=== PATIENT | female | born 1935 | race Caucasian/White ===

== ENCOUNTER 2019-02-05 15:22 | Inpatient (IN) | payer OTHER, BC ==
[2019-02-05] MEDS ORDERED: METOPROLOL TAR 50 MG TAB ONE (16:18)
[2019-02-05 16:19] LABS: Absolute Lymphocytes (CBC) 1.6 K/uL (0.7-4.9); Absolute Monocytes 1.2 K/uL (0.1-1.3); Absolute Neutrophil 6.3 K/uL (1.8-8.0); Basophils % 0.8 % (0-1.3); Eosinophils % 0.6 % (0-4.4); Hematocrit 37.4 % (36.0-45.0); Lymphocytes % 17.4 % (15.3-44.8); MPV 9.4 fL (7.6-11.3); RBC Red Blood Cell Count 3.73 M/uL (3.86-4.86)
[2019-02-05] MEDS ORDERED: NA CHLORIDE 0.9% 1,000 ML ONE (16:19)
[2019-02-05] MEDS ORDERED: METOPROLOL TARTRATE 5 MG/5 ML INJ IV ONE ×2 (16:19→20:20)
[2019-02-05 16:23] LABS: Protime INR 1.01
--- NOTE | 2019-02-05 16:36 | EDPHYS ---
Physician Documentation [facility] Name: Concetta Ugarte Age: 83 yrs Sex: Female : 1935 Arrival Date: 02/05/2019 Time: 15:26 Bed 3 Private MD: John Child R ED Physician Tuan Spencer HPI: 02/05 16:27 This 83 yrs old Female presents to ER via Ambulatory with complaints of Feet janeth Swelling, Irregular heart rate. 16:27 The patient has shortness of breath at rest, with light activity. Onset: The janeth symptoms/episode began/occurred 2 day(s) ago. Duration: The symptoms are continuous, and are steadily getting worse. The patient's shortness of breath has no apparent modifying factors. The patient or guardian reports chest pain that is located primarily in the substernal area. Onset: 2 day(s) ago. Context: The symptoms occur at rest. Modifying factors: The symptoms are aggravated by nothing. The symptoms are alleviated by nothing. Historical: - Allergies: 15:38 Codeine; hj - Home Meds: 15:38 Lasix Oral [Active]; valsartan oral oral [Active]; Albuterol Inhl [Active]; Clonidine hj Oral [Active]; escitalopram oxalate oral oral [Active]; carvedilol oral oral [Active]; Famotidine Oral [Active]; Spironolactone Oral [Active]; Hydralazine Oral [Active]; pravastatin oral oral [Active]; amlodipine oral [Active]; - PMHx: 15:38 carpal tunnel; HTN; TIA; hj - PSHx: 15:38 None; hj - Immunization history:: Adult Immunizations up to date. - Social history:: Smoking status: Patient/guardian denies using tobacco, Patient/guardian denies using alcohol. - Ebola Screening: : Patient negative for fever greater than or equal to 101.5 degrees Fahrenheit, and additional compatible Ebola Virus Disease symptoms Patient denies exposure to infectious person Patient denies travel to an Ebola-affected area in the 21 days before illness onset. - Family history:: not pertinent. ROS: 16:27 Constitutional: Negative for fever, chills, and weight loss, Eyes: Negative for injury, janeth pain, redness, and discharge, ENT: Negative for injury, pain, and discharge, Neck: Negative for injury, pain, and swelling, Respiratory: Negative for shortness of breath, cough, wheezing, and pleuritic chest pain, Abdomen/GI: Negative for abdominal pain, nausea, vomiting, diarrhea, and constipation, Back: Negative for injury and pain, : Negative for injury, bleeding, discharge, and swelling, Skin: Negative for injury, rash, and discoloration, Neuro: Negative for headache, weakness, numbness, tingling, and seizure, Psych: Negative for depression, anxiety, suicide ideation, homicidal ideation, and hallucinations, Allergy/Immunology: Negative for hives, rash, and allergies, Endocrine: Negative for neck swelling, polydipsia, polyuria, polyphagia, and marked weight changes, Hematologic/Lymphatic: Negative for swollen nodes, abnormal bleeding, and unusual bruising. 16:27 Cardiovascular: Positive for palpitations. 16:27 MS/extremity: Positive for decreased range of motion, pain, swelling, tenderness, of the left foot. Exam: 16:27 Constitutional: This is a well developed, well nourished patient who is awake, alert, janeth and in no acute distress. Head/Face: Normocephalic, atraumatic. Eyes: Pupils equal round and reactive to light, extra-ocular motions intact. Lids and lashes normal. Conjunctiva and sclera are non-icteric and not injected. Cornea within normal limits. Periorbital areas with no swelling, redness, or edema. ENT: Nares patent. No nasal discharge, no septal abnormalities noted. Tympanic membranes are normal and external auditory canals are clear. Oropharynx with no redness, swelling, or masses, exudates, or evidence of obstruction, uvula midline. Mucous membranes moist. Neck: Trachea midline, no thyromegaly or masses palpated, and no cervical lymphadenopathy. Supple, full range of motion without nuchal rigidity, or vertebral point tenderness. No Meningismus. Chest/axilla: Normal chest wall appearance and motion. Nontender with no deformity. No lesions are appreciated. Respiratory: Lungs have equal breath sounds bilaterally, clear to auscultation and percussion. No rales, rhonchi or wheezes noted. No increased work of breathing, no retractions or nasal flaring. Abdomen/GI: Soft, non-tender, with normal bowel sounds. No distension or tympany. No guarding or rebound. No evidence of tenderness throughout. Back: No spinal tenderness. No costovertebral tenderness. Full range of motion. Female : Normal external genitalia. Skin: Warm, dry with normal turgor. Normal color with no rashes, no lesions, and no evidence of cellulitis. Neuro: Awake and alert, GCS 15, oriented to person, place, time, and situation. Cranial nerves II-XII grossly intact. Motor strength 5/5 in all extremities. Sensory grossly intact. Cerebellar exam normal. Normal gait. Psych: Awake, alert, with orientation to person, place and time. Behavior, mood, and affect are within normal limits. 16:27 Cardiovascular: Rate: tachycardic, Rhythm: regular, Pulses: Pulses are 4+ in bilateral radial, brachial, femoral, popliteal, posterior tibial and and dorsalis pedis arteries.. Heart sounds: normal, Edema: is not appreciated, JVD: is not appreciated. Vital Signs: 15:39 BP 131 / 80; Pulse 145; Resp 18; Temp 98.9(O); Pulse Ox 98% on R/A; Weight 63.5 kg; hj Height 5 ft. 4 in. (162.56 cm); Pain 6/10; 16:32 BP 128 / 78; Pulse 143 MON; Resp 22; Pulse Ox 99% ; sv 16:45 BP 137 / 96; Pulse 111 MON; Resp 17; Pulse Ox 97% on R/A; Pain 6/10; sg 17:00 BP 132 / 85; Pulse 124 MON; Resp 16; Pulse Ox 98% on R/A; Pain 4/10; sg 17:30 BP 139 / 82; Pulse 102 MON; Resp 16; Pulse Ox 97% on R/A; sg 18:00 BP 137 / 89; Pulse 116 MON; Resp 16; Pulse Ox 98% on R/A; sg 18:30 BP 136 / 80; Pulse 106; Resp 16; Pulse Ox 96% on R/A; sg 19:00 BP 146 / 101; Pulse 115; Resp 19; Pulse Ox 99% on 2 lpm NC; rr5 19:30 BP 165 / 89; Pulse 120; Resp 18; Temp 98.5; Pulse Ox 100% on 2 lpm NC; rr5 20:00 BP 139 / 81; Pulse 99; Resp 16; Pulse Ox 98% 2 lpm ; rr5 20:30 BP 149 / 77; Pulse 121; Resp 16; Pulse Ox 99% on 2 lpm NC; rr5 21:00 BP 126 / 86; Pulse 118; Resp 16; Pulse Ox 99% on 2 lpm NC; rr5 22:00 BP 150 / 87; Pulse 110; Resp 17; Pulse Ox 98% on 2 lpm NC; rr5 23:00 BP 154 / 81; Pulse 103; Resp 19; Pulse Ox 99% on 2 lpm NC; rr5 02/06 00:00 BP 139 / 97; Pulse 117; Resp 19; Pulse Ox 100% ; rr5 01:00 BP 151 / 108; Pulse 102; Resp 17; Pulse Ox 98% ; rr5 02:00 BP 113 / 89; Pulse 91; Resp 17; Pulse Ox 99% on 2 lpm NC; rr5 02:49 BP 135 / 115; Pulse 122; Resp 22; Pulse Ox 96% on 2 lpm NC; ak1 02/05 15:39 Body Mass Index 24.03 (63.50 kg, 162.56 cm) hj 16:32 A fib sv 16:45 A fib sg MDM: 02/05 15:49 Patient medically screened. [facility] 16:29 Data reviewed: vital signs, nurses notes, lab test result(s), EKG, radiologic studies, janeth plain films. 02/05 16:03 Order name: Basic Metabolic Panel; Complete Time: 17:18 [facility] 02/05 16:03 Order name: CBC with Diff; Complete Time: 17:18 [facility] 02/05 16:03 Order name: LFT's; Complete Time: 17:18 [facility] 02/05 16:03 Order name: Magnesium; Complete Time: 17:18 [facility] 02/05 16:03 Order name: NT PRO-BNP; Complete Time: 17:18 [facility] 02/05 16:03 Order name: PT-INR; Complete Time: 17:18 [facility] 02/05 16:03 Order name: Troponin (emerg Dept Use Only); Complete Time: 17:18 [facility] 02/05 16:03 Order name: TSH; Complete Time: 17:18 [facility] 02/05 16:03 Order name: Urine Culture [facility] 02/05 16:24 Order name: Uric Acid; Complete Time: 17:18 [facility] 02/05 16:24 Order name: Blood Culture Adult (2) [facility] 02/05 19:35 Order name: Urine Dipstick--Ancillary (enter results) 2 02/05 20:22 Order name: Urine Dipstick-Ancillary [facility] 02/06 02:34 Order name: Sedimentation Rate, [place] [facility] 02/05 16:24 Order name: US Extremity Venous W Compression Hipolito [facility] 02/05 16:24 Order name: Foot Left 3 View XRAY; Complete Time: 17:46 [facility] 02/05 17:10 Order name: Chest Single View; Complete Time: 17:46 [facility] 02/05 18:13 Order name: US; Complete Time: 19:15 [facility] 02/06 02:40 Order name: Creatine Phosphokinase [facility] 02/06 02:40 Order name: CKMB Creatine Kinase MB [facility] 02/06 02:40 Order name: Troponin I [facility] 02/06 02:40 Order name: C-Reactive Protein [facility] 02/06 02:40 Order name: T4 Free [facility] 02/06 02:40 Order name: Thyroid Stimulating Hormone [facility] 02/05 15:56 Order name: EKG; Complete Time: 15:56 02/05 16:03 Order name: Cardiac monitoring; Complete Time: 16:20 [facility] 02/05 16:03 Order name: EKG - Nurse/Tech; Complete Time: 16:05 [facility] 02/05 16:03 Order name: IV Saline Lock; Complete Time: 16:20 [facility] 02/05 16:03 Order name: Labs collected and sent; Complete Time: 16:20 [facility] 02/05 16:03 Order name: O2 Per Protocol; Complete Time: 16:20 [facility] 02/05 16:03 Order name: O2 Sat Monitoring; Complete Time: 16:20 [facility] 02/05 16:03 Order name: Urine Dipstick-Ancillary (obtain specimen); Complete Time: 01:22 [facility] Administered Medications: Discontinued: NS 0.9% 1000 ml IV at 125 ml/hr continuous 16:24 Drug: Lopressor 5 mg Route: IVP; Site: left antecubital; sg 16:30 Drug: NS 0.9% 1000 ml Route: IV; Rate: 125 ml/hr; Site: left antecubital; sg 16:37 Drug: Lopressor 5 mg Route: IVP; Site: left antecubital; sv 17:10 Drug: Lopressor 5 mg Route: IVP; Site: left antecubital; sg 18:00 Follow up: Response: No adverse reaction sg 17:30 Drug: Lopressor (metoprolol TARTRATE) 50 mg Route: PO; sg 19:00 Follow up: Response: No adverse reaction sg 18:00 Drug: Colcrys 1.2 mg Route: PO; sg 19:00 Follow up: Response: No adverse reaction sg 18:15 Drug: Magnesium Sulfate 2 grams Route: IVPB; Infused Over: 2 hrs; Site: left sg antecubital; 19:00 Follow up: Response: No adverse reaction; IV Status: Completed infusion sg 18:15 Drug: NS 0.9% with KCl 20 mEq/L 1000 ml Route: IV; Rate: 100 ml/hr; Site: left sg antecubital; 18:15 Drug: Digoxin 0.5 mg Route: IVP; Site: left antecubital; sg 19:00 Follow up: Response: No adverse reaction sg 18:15 Drug: Pepcid 20 mg Route: IVP; Site: left antecubital; sg 19:00 Follow up: Response: No adverse reaction sg 18:15 Drug: Sotalol 80 mg Route: PO; sg 18:45 Follow up: Response: No adverse reaction; Blood pressure is elevated sg 18:20 Drug: Potassium Effervescent Tablet 50 mEq Route: PO; sg 19:00 Follow up: Response: No adverse reaction sg 19:00 Drug: Colcrys 0.6 mg Route: PO; sg 02/06 01:21 Follow up: Response: No adverse reaction rr5 02/05 19:40 Drug: Sotalol 80 mg Route: PO; rr5 19:50 Drug: Lopressor 5 mg Route: IVP; Site: left antecubital; rr5 21:05 Drug: Rocephin - (cefTRIAXone) 1 grams Route: IVPB; Infused Over: 30 mins; Site: right rr5 antecubital; 21:50 Follow up: Response: No adverse reaction; IV Status: Completed infusion rr5 Disposition: 02/05/19 16:36 Hospitalization ordered by Fady Antunez for Inpatient Admission. Preliminary diagnosis are Atrial fibrillation and flutter - with RVR, NEW ONSET, Gout, Hypomagnesemia, Hypokalemia, Pleural effusion in conditions classified elsewhere, Cardiomegaly. - Bed requested for Telemetry/MedSurg (Inpatient). - Status is Inpatient Admission. ak1 - Condition is Fair. - Problem is new. - Symptoms have improved. UTI on Admission? No Signatures: Dispatcher [employer] EDNY Kesha Flowers, RN Tio Tobar RN Tuan Cortes MD MD cha Ballard, Brenda, RN RN bb Meena Rudd RN RN ak1 Torito Gaffney RN Mya Carter RN Ramsey Ovalle RN RN rr5 Corrections: (The following items were deleted from the chart) 17:11 16:04 Chest Single View+RAD.RAD.BRZ ordered. [facility] EDNY 17:22 16:36 Hospitalization Ordered by Fady Antunez DO for Inpatient Admission. Preliminary janeth diagnosis is Atrial fibrillation and flutter - with RVR, NEW ONSET; Gout. Bed requested for Telemetry/MedSurg (Inpatient). Status is Inpatient Admission. Condition is Fair. Problem is new. Symptoms have improved. UTI on Admission? No. janeth 19:20 17:22 02/05/2019 16:36 Hospitalization Ordered by Fady Antunez DO for Inpatient janeth Admission. Preliminary diagnosis is Atrial fibrillation and flutter - with RVR, NEW ONSET; Gout; Hypomagnesemia; Hypokalemia. Bed requested for Telemetry/MedSurg (Inpatient). Status is Inpatient Admission. Condition is Fair. Problem is new. Symptoms have improved. UTI on Admission? No. janeth 02/06 00:54 02/05 19:20 02/05/2019 16:36 Hospitalization Ordered by Fady Antunez DO for Inpatient bb Admission. Preliminary diagnosis is Atrial fibrillation and flutter - with RVR, NEW ONSET; Gout; Hypomagnesemia; Hypokalemia; Pleural effusion in conditions classified elsewhere; Cardiomegaly. Bed requested for Telemetry/MedSurg (Inpatient). Status is Inpatient Admission. Condition is Fair. Problem is new. Symptoms have improved. UTI on Admission? No. janeth 02/06 02:05 00:54 02/05/2019 16:36 Hospitalization Ordered by Fady Antunez DO for Inpatient cg Admission. Preliminary diagnosis is Atrial fibrillation and flutter - with RVR, NEW ONSET; Gout; Hypomagnesemia; Hypokalemia; Pleural effusion in conditions classified elsewhere; Cardiomegaly. Bed requested for Intensive Care Unit. Status is Inpatient Admission. Condition is Fair. Problem is new. Symptoms have improved. UTI on Admission? No. bb 03:29 02:05 02/05/2019 16:36 Hospitalization Ordered by Fady Antunez DO for Inpatient ak1 Admission. Preliminary diagnosis is Atrial fibrillation and flutter - with RVR, NEW ONSET; Gout; Hypomagnesemia; Hypokalemia; Pleural effusion in conditions classified elsewhere; Cardiomegaly. Bed requested for Telemetry/MedSurg (Inpatient). Status is Inpatient Admission. Condition is Fair. Problem is new. Symptoms have improved. UTI on Admission? No. cg
--- NOTE | 2019-02-05 16:36 | ER ---
Nurse's Notes [facility] Name: Concetta Ugarte Age: 83 yrs Sex: Female : 1935 Arrival Date: 02/05/2019 Time: 15:26 Bed 3 Private MD: John Child R Diagnosis: Atrial fibrillation and flutter-with RVR, NEW ONSET;Gout;Hypomagnesemia;Hypokalemia;Pleural effusion in conditions classified elsewhere;Cardiomegaly Presentation: 02/05 15:34 Presenting complaint: Patient states: i went tot urgent care today due to my L foot hj hurting, swollen and red, told i had cellulitis; denies fever and chills; was told i have irregular heart rate; denies chest pain or SOB;. Transition of care: patient was not received from another setting of care. Onset of symptoms was February 05, 2019. Risk Assessment: Do you want to hurt yourself or someone else? Patient reports no desire to harm self or others. Initial Sepsis Screen: Does the patient meet any 2 criteria? No. Patient's initial sepsis screen is negative. Does the patient have a suspected source of infection? No. Patient's initial sepsis screen is negative. Care prior to arrival: None. 15:34 Method Of Arrival: Ambulatory 15:34 Acuity: REYNA 2 hj 15:56 Acuity: REYNA 2 ss Triage Assessment: 15:38 General: Appears in no apparent distress. uncomfortable, Behavior is calm, cooperative, hj appropriate for age. Pain: Complains of pain in left foot Pain currently is 6 out of 10 on a pain scale. Historical: - Allergies: 15:38 Codeine; hj - Home Meds: 15:38 Lasix Oral [Active]; valsartan oral oral [Active]; Albuterol Inhl [Active]; Clonidine hj Oral [Active]; escitalopram oxalate oral oral [Active]; carvedilol oral oral [Active]; Famotidine Oral [Active]; Spironolactone Oral [Active]; Hydralazine Oral [Active]; pravastatin oral oral [Active]; amlodipine oral [Active]; - PMHx: 15:38 carpal tunnel; HTN; TIA; hj - PSHx: 15:38 None; hj - Immunization history:: Adult Immunizations up to date. - Social history:: Smoking status: Patient/guardian denies using tobacco, Patient/guardian denies using alcohol. - Ebola Screening: : Patient negative for fever greater than or equal to 101.5 degrees Fahrenheit, and additional compatible Ebola Virus Disease symptoms Patient denies exposure to infectious person Patient denies travel to an Ebola-affected area in the 21 days before illness onset. - Family history:: not pertinent. Screenin:38 Abuse screen: Denies threats or abuse. Denies injuries from another. Nutritional hj screening: No deficits noted. Tuberculosis screening: No symptoms or risk factors identified. Fall Risk None identified. Assessment: 15:45 General: Appears in no apparent distress. uncomfortable, well groomed, well developed, sg well nourished, Behavior is calm, cooperative, appropriate for age. Pain: Complains of pain in left first toe Quality of pain is described as aching, throbbing. Neuro: Level of Consciousness is awake, alert, obeys commands, Oriented to person, place, time, situation, Management Manager are equal bilaterally Moves all extremities. Full function Gait is steady, Speech is normal, Facial symmetry appears normal, Pupils are PERRLA. Cardiovascular: Capillary refill is brisk in bilateral fingers Patient's skin is warm and dry. Chest pain is denied. Respiratory: Airway is patent Respiratory effort is even, unlabored, Respiratory pattern is regular, symmetrical. GI: Abdomen is round non-distended, Reports normal bowel habits, tolerance of fluids, tolerance of food. : No signs and/or symptoms were reported regarding the genitourinary system. EENT: No signs and/or symptoms were reported regarding the EENT system. Derm: Skin is intact, is thin, Skin is dry, Skin is pale, Skin temperature is warm. Musculoskeletal: Circulation, motion, and sensation intact. Range of motion: intact in all extremities, Swelling absent. 16:50 Reassessment: Patient appears in no apparent distress at this time. Patient and/or sg family updated on plan of care and expected duration. Pain level reassessed. Patient is alert, oriented x 3, equal unlabored respirations, skin warm/dry/pink. Patient states feeling better. 17:50 Reassessment: Patient appears in no apparent distress at this time. Patient and/or sg family updated on plan of care and expected duration. Pain level reassessed. Patient is alert, oriented x 3, equal unlabored respirations, skin warm/dry/pink. awaiting admission orders at this time. 18:50 Reassessment: Patient appears in no apparent distress at this time. Patient and/or sg family updated on plan of care and expected duration. Pain level reassessed. 19:00 General: Appears in no apparent distress. comfortable, Behavior is calm, cooperative, rr5 appropriate for age. Neuro: Level of Consciousness is awake, alert, obeys commands, Oriented to person, place, time, situation, Appropriate for age. Cardiovascular: Capillary refill < 3 seconds Patient's skin is warm and dry. Rhythm is atrial fibrillation. 19:00 Respiratory: Airway is patent Respiratory effort is even, unlabored, Respiratory rr5 pattern is regular, symmetrical. GI: No signs and/or symptoms were reported involving the gastrointestinal system. : No signs and/or symptoms were reported regarding the genitourinary system. EENT: No signs and/or symptoms were reported regarding the EENT system. Derm: Skin is intact, Skin is dry, Skin temperature is warm. Musculoskeletal: Capillary refill < 3 seconds, Swelling present in left foot. 20:15 Reassessment: Patient appears in no apparent distress at this time. Patient is alert, rr5 oriented x 3, equal unlabored respirations, skin warm/dry/pink. no complaints made. Provider at bedside examining the patient. 21:15 Reassessment: Patient appears in no apparent distress at this time. Patient is alert, rr5 oriented x 3, equal unlabored respirations, skin warm/dry/pink. chatting with her property worker comfortably. Patient states symptoms have improved. 22:15 Reassessment: Patient appears in no apparent distress at this time. Patient is alert, rr5 oriented x 3, equal unlabored respirations, skin warm/dry/pink. awaiting for room assignment. 23:00 Reassessment: khushbu ugarte (daughter in law) [phone] contact number. rr5 23:20 Reassessment: Patient appears in no apparent distress at this time. Patient is alert, rr5 oriented x 3, equal unlabored respirations, skin warm/dry/pink. asleep on bed on side lying position. 02/06 00:10 Reassessment: Patient appears in no apparent distress at this time. pt informed of ER ak1 hold status due to no ICU bed available. pt lights dimmed and door closed at pt request. 01:05 Reassessment: Patient appears in no apparent distress at this time. Patient is alert, rr5 oriented x 3, equal unlabored respirations, skin warm/dry/pink. charge nurse coordinated to supervisor roving for the bed arrangement. supervisor roving talked to hospitalist with order patient can go to [facility]. Vital Signs: 02/05 15:39 BP 131 / 80; Pulse 145; Resp 18; Temp 98.9(O); Pulse Ox 98% on R/A; Weight 63.5 kg; hj Height 5 ft. 4 in. (162.56 cm); Pain 6/10; 16:32 BP 128 / 78; Pulse 143 MON; Resp 22; Pulse Ox 99% ; sv 16:45 BP 137 / 96; Pulse 111 MON; Resp 17; Pulse Ox 97% on R/A; Pain 6/10; sg 17:00 BP 132 / 85; Pulse 124 MON; Resp 16; Pulse Ox 98% on R/A; Pain 4/10; sg 17:30 BP 139 / 82; Pulse 102 MON; Resp 16; Pulse Ox 97% on R/A; sg 18:00 BP 137 / 89; Pulse 116 MON; Resp 16; Pulse Ox 98% on R/A; sg 18:30 BP 136 / 80; Pulse 106; Resp 16; Pulse Ox 96% on R/A; sg 19:00 BP 146 / 101; Pulse 115; Resp 19; Pulse Ox 99% on 2 lpm NC; rr5 19:30 BP 165 / 89; Pulse 120; Resp 18; Temp 98.5; Pulse Ox 100% on 2 lpm NC; rr5 20:00 BP 139 / 81; Pulse 99; Resp 16; Pulse Ox 98% 2 lpm ; rr5 20:30 BP 149 / 77; Pulse 121; Resp 16; Pulse Ox 99% on 2 lpm NC; rr5 21:00 BP 126 / 86; Pulse 118; Resp 16; Pulse Ox 99% on 2 lpm NC; rr5 22:00 BP 150 / 87; Pulse 110; Resp 17; Pulse Ox 98% on 2 lpm NC; rr5 23:00 BP 154 / 81; Pulse 103; Resp 19; Pulse Ox 99% on 2 lpm NC; rr5 02/06 00:00 BP 139 / 97; Pulse 117; Resp 19; Pulse Ox 100% ; rr5 01:00 BP 151 / 108; Pulse 102; Resp 17; Pulse Ox 98% ; rr5 02:00 BP 113 / 89; Pulse 91; Resp 17; Pulse Ox 99% on 2 lpm NC; rr5 02:49 BP 135 / 115; Pulse 122; Resp 22; Pulse Ox 96% on 2 lpm NC; ak1 02/05 15:39 Body Mass Index 24.03 (63.50 kg, 162.56 cm) hj 16:32 A fib sv 16:45 A fib sg ED Course: 02/05 15:26 Patient arrived in ED. mr 15:26 John Child MD is Private Physician. mr 15:36 Triage completed. hj 15:39 Arm band placed on right wrist. hj 15:39 Patient has correct armband on for positive identification. Placed in gown. Bed in low hj position. Call light in reach. Side rails up X 1. Adult w/ patient. 15:49 Tuan Spencer MD is Attending Physician. janeth 16:04 Tio Jung, BRIEN is Primary Nurse. sg 16:12 Inserted saline lock: 22 gauge in left antecubital area, using aseptic technique. Blood ss collected. 16:35 Fady Antunez DO is Hospitalizing Provider. janeth 16:57 Foot Left 3 View XRAY In Process Unspecified. EDMS 17:16 Chest Single View In Process Unspecified. EDMS 20:41 Urine Dipstick--Ancillary (enter results) Sent. rr5 20:45 Inserted saline lock: 22 gauge in right antecubital area, using aseptic technique. rr5 Blood collected. 02/06 00:00 IV discontinued, right AC line removed. positive infiltration. rr5 02:52 No provider procedures requiring assistance completed. Patient admitted, IV remains in rr5 place. intact, No redness/swelling at site. Administered Medications: Discontinued: NS 0.9% 1000 ml IV at 125 ml/hr continuous 02/05 16:24 Drug: Lopressor 5 mg Route: IVP; Site: left antecubital; sg 16:30 Drug: NS 0.9% 1000 ml Route: IV; Rate: 125 ml/hr; Site: left antecubital; sg 16:37 Drug: Lopressor 5 mg Route: IVP; Site: left antecubital; sv 17:10 Drug: Lopressor 5 mg Route: IVP; Site: left antecubital; sg 18:00 Follow up: Response: No adverse reaction sg 17:30 Drug: Lopressor (metoprolol TARTRATE) 50 mg Route: PO; sg 19:00 Follow up: Response: No adverse reaction sg 18:00 Drug: Colcrys 1.2 mg Route: PO; sg 19:00 Follow up: Response: No adverse reaction sg 18:15 Drug: Magnesium Sulfate 2 grams Route: IVPB; Infused Over: 2 hrs; Site: left sg antecubital; 19:00 Follow up: Response: No adverse reaction; IV Status: Completed infusion sg 18:15 Drug: NS 0.9% with KCl 20 mEq/L 1000 ml Route: IV; Rate: 100 ml/hr; Site: left sg antecubital; 18:15 Drug: Digoxin 0.5 mg Route: IVP; Site: left antecubital; sg 19:00 Follow up: Response: No adverse reaction sg 18:15 Drug: Pepcid 20 mg Route: IVP; Site: left antecubital; sg 19:00 Follow up: Response: No adverse reaction sg 18:15 Drug: Sotalol 80 mg Route: PO; sg 18:45 Follow up: Response: No adverse reaction; Blood pressure is elevated sg 18:20 Drug: Potassium Effervescent Tablet 50 mEq Route: PO; sg 19:00 Follow up: Response: No adverse reaction sg 19:00 Drug: Colcrys 0.6 mg Route: PO; sg 02/06 01:21 Follow up: Response: No adverse reaction rr5 02/05 19:40 Drug: Sotalol 80 mg Route: PO; rr5 19:50 Drug: Lopressor 5 mg Route: IVP; Site: left antecubital; rr5 21:05 Drug: Rocephin - (cefTRIAXone) 1 grams Route: IVPB; Infused Over: 30 mins; Site: right rr5 antecubital; 21:50 Follow up: Response: No adverse reaction; IV Status: Completed infusion rr5 Outcome: 16:36 Decision to Hospitalize by Provider. [facility] 02/06 02:52 Admitted to Tele accompanied by nurse, via stretcher, room 409, with chart, Report rr5 called to tara Condition: stable Instructed on the need for admit. 03:29 Patient left the ED. ak1 Signatures: Dispatcher [employer] EDMS Kesha Flowers, RN Tio Tobar RN RN Tuan Marks MD MD cha Rivera, Mary mr JustinaNisa, RN RN ss Meena Rudd RN RN ak1 Torito Gaffney RN BRIEN Ramsey Luna RN RN rr5 Corrections: (The following items were deleted from the chart) 02/05 15:42 15:39 Pulse 143bpm; Resp 18bpm; Pulse Ox 98% RA; Temp 98.9F Oral; 63.5 kg; Height 5 ft. hj 4 in.; BMI: 24.0; Pain 6/10; hj 15:43 15:34 Presenting complaint: Patient states: i went tot urgent care today due to my L hj foot hurting, swollen and red, told i had cellulitis; denies fever and chills; was told i have irregular heart rate; hj 16:30 15:34 Acuity: REYNA 3 hj hj 17:11 16:57 In radiology for Chest Single View+[id number].[email or web address].[email or web address]. EDMS EDMS 18:35 18:15 Colcrys 0.6 mg PO sg sg 23:21 23:00 Reassessment: daughter in law [phone] contact number. rr5 rr5
[2019-02-05 16:48] LABS: Albumin 3.5 g/dL (3.4-5.0); Bilirubin Direct 0.2 mg/dL (0-0.2); Bilirubin Total 0.4 mg/dL (0.2-1.0); Potassium 3.3 mmol/L (3.5-5.1); Protein, Total 7.7 g/dL (6.4-8.2); Thyroid Stimulating Hormone 1.48 uIU/mL (0.360-3.740)
[2019-02-05 16:51] LABS: Magnesium 1.3 mg/dL (1.8-2.4); Troponin (Emerg Dept Use Only) 1.1 ng/mL (0.0-0.045)
[2019-02-05] MEDS ORDERED: COLCHICINE 0.6 MG TAB ONE (17:05)
--- NOTE | 2019-02-05 17:24 | RAD REPORT ---
EXAM DESCRIPTION: RAD - Chest Single View - 02/05/2019 5:15 pm CLINICAL HISTORY: COUGH COPD Chest pain. COMPARISON: No comparisons FINDINGS: Portable technique limits examination quality. Emphysematous changes are present with a small left pleural effusion and vague opacity in left lung b ase, most compatible with pneumonia. The heart is moderately enlarged in size with aortic atheroscler osis. No displaced fractures.
--- NOTE | 2019-02-05 17:25 | RAD REPORT ---
EXAM DESCRIPTION: RAD - Foot Left 3 View - 02/05/2019 5:05 pm CLINICAL HISTORY: PAIN COMPARISON: No comparisons FINDINGS: Moderate hallux valgus with metatarsus primus adductus seen. Diffuse prominent soft tissue swelling is seen involving the dorsal foot. A large plantar calcaneal spur noted. No acute fracture seen.
--- NOTE | 2019-02-05 17:26 | P.HP ---
Certification for Inpatient Patient admitted to: Inpatient With expected LOS: >2 Midnights Patient will require the following post-hospital care: None Practitioner: I am a practitioner with admitting privileges, knowledge of patient current condition, hospital course, and medical plan of care. Services: Services provided to patient in accordance with Admission requirements found in Title 42 Section 412.3 of the Code of Federal Regulations Patient History Date of Service: 02/05/19 Primary Care Provider: Dr. Chaidez Reason for admission: Left foot swelling History of Present Illness: 83-year-old female presented to the emergency room with left foot swelling. Patient had left foot swelling today. Patient with history of hypertension. Upon further evaluation in the emergency room she was found to be in atrial fibrillation with RVR. Rate above 140. Patient given several doses of Lopressor. Slight improvement noted. Swelling reported by patient had been present for over a day. Some slight pain noted. She does report some shortness of breath. Palpitations noted. She reports that she was seen by her dock clerk this past week. Lasix was added. Patient reports no prior history of atrial fibrillation. In the ER patient evaluated. CBC, CMP reviewed. Troponin was elevated. Patient was admitted for treatment. Case discussed with cardiology. Patient will be started on full-dose anti coagulation therapy and sotalol. When I saw the patient ER, she appeared stable. Allergies No Known Allergies Allergy (Unverified 01/26/16 19:14) Home medications list reviewed: Yes - Past Medical/Surgical History Diabetic: No -: Hypertension -: GERD -: Hyperlipidemia -: Tonsillectomy -: Appendectomy -: Cholecystectomy -: Hysterectomy Psychosocial/ Personal History: Patient lives at an assisted living facility. - Family History Family History: Reviewed- Non-Contributory - Family History Mother -: Heart disease, Stroke - Social History Smoking Status: Former smoker Alcohol use: No CD- Drugs: No Caffeine use: Yes Place of Residence: Assisted Review of Systems General: As per HPI Eyes: Unremarkable ENT: Unremarkable Respiratory: Shortness of Breath, As per HPI Cardiovascular: Palpitations, As per HPI Gastrointestinal: Unremarkable Genitourinary: Unremarkable Musculoskeletal: As per HPI Integumentary: As per HPI Neurological: Unremarkable Lymphatics: Unremarkable Physical Examination - Physical Exam General: Alert, In no apparent distress, Oriented x3, Cooperative HEENT: Atraumatic, Normocephalic, PERRLA, Mucous membr. moist/pink Neck: Supple, No Thyromegaly Respiratory: Clear to auscultation bilaterally, Normal air movement Cardiovascular: Irregular heart rate/rhythm (Atrial fibrillation, rate around 120-130) Gastrointestinal: Normal bowel sounds, Soft and benign, Non-distended, No tenderness, No masses, No rebound, No guarding Integumentary: Tenderness/swelling (Erythema and swelling to the left lower extremity. Swelling primarily to the left foot and great toe. Slight warmth noted.) Neurological: Normal speech, Normal strength at 5/5 x4 extr, Normal tone, Normal affect - Studies Laboratory Data (last 24 hrs) 02/05/19 16:10: Uric Acid 5.8 02/05/19 16:10: PT 11.9, INR 1.01 02/05/19 16:10: WBC 9.2, Hgb 12.9, Hct 37.4, Plt Count 234 02/05/19 16:10: Sodium 138, Potassium 3.3 L, BUN 22 H, Creatinine 0.97, Glucose 132 H, Magnesium 1.3 L*, Total Bilirubin 0.4, AST 31, ALT 30, Alkaline Phosphatase 81 Assessment and Plan - Plan Impression: New onset atrial fibrillation with RVR complicated with NSTEMI Hypertension Suspect acute on chronic diastolic CHF Left lower extremity edema suspect gout versus other Hyperlipidemia GERD Plan: New onset atrial fibrillation with RVR complicated with NSTEMI: Patient will be admitted to ICU for further evaluation and treatment. Patient given Lopressor in the emergency room. Case discussed with cardiology. Patient will be started on sotalol 80 mg twice daily. Will start full-dose anti coagulation therapy. Will monitor cardiac enzymes and telemetry. Obtain echocardiogram. Will also provide Lasix. Cardiology to further assess and evaluate patient. Patient may require further cardiac evaluation and treatment. Dr. Galan to take over tomorrow. I will go over the plan of care with her. Hypertension: Will hold Diovan at this time. Continue with hydralazine IV. Patient be started on sotalol. Suspect acute on chronic diastolic CHF: Patient recently started on Lasix. Will continue with Lasix IV. Obtain echocardiogram. Left lower extremity edema suspect gout versus other: Will need to further assess left lower extremity edema. Will rule out DVT. Sed rate and CRP obtained along with uric acid to evaluate for possible gout. Hyperlipidemia: Continue with statin medication GERD: Continue with medication Discharge Plan: Other (Assisted living facility) Plan to discharge in: Greater than 2 days - Advance Directives Does patient have a Living Will: No Does patient have a Durable POA for Healthcare: No - Code Status/Comfort Care Code Status Assessed: Yes (Full code) Time Spent Managing Pts Care (In Minutes): 55
[2019-02-05] MEDS ORDERED: ASPIRIN 81 MG CHEWABLE TABLET ONE (17:43)
[2019-02-05] MEDS ORDERED: SOTALOL HCL 80 MG TAB ONE ×2 (17:43→20:20)
[2019-02-05] MEDS ORDERED: FAMOTIDINE 20 MG/2 ML VIAL IV ONE (17:44)
[2019-02-05] MEDS ORDERED: POTASSIUM 25 MEQ EFFERV TAB ONE (17:44)
[2019-02-05] MEDS ORDERED: NS KCL 20MEQ 1,000 ML IV ONE (17:44)
[2019-02-05] MEDS ORDERED: Magnesium Sulfate 2gm IVPB 2 G/50 ML BAG IV ONE (17:44)
--- NOTE | 2019-02-05 18:13 | RAD REPORT ---
EXAM DESCRIPTION: US - Extrem Venous W Compress Hipolito - 02/05/2019 6:05 pm CLINICAL HISTORY: Pain;Swelling Bilateral leg edema and swelling. COMPARISON: No comparisons TECHNIQUE: Real-time sonographic interrogation of the left and right lower extremity deep venous sys tems was performed. FINDINGS: Normal compressibility, flow augmentation, phasic flow and spontaneous flow is identified in both the left and right lower extremity deep venous systems. IMPRESSION: No sonographic evidence of left or right lower extremity deep venous thrombosis.
[2019-02-05] MEDS ORDERED: DIGOXIN 0.25 MG/ML AMP ONE (18:16)
[2019-02-05 20:22] LABS: Urine Blood NEGATIVE (NEG); Urine Glucose NEGATIVE (NEG); Urine Protein NEGATIVE (NEG); Urine Specific Gravity 1.015 (1.005-1.030)
[2019-02-05] MEDS ORDERED: CEFTRIAXONE/SWI 1gm 1 GM/10 ML SYR ONE (20:58)
--- NOTE | 2019-02-05 21:54 | CON ---
History Of Present Illness: Mrs. Ugarte is 83. For about a week, she has been experiencing a lot of pain in her left foot. She was unable to walk. [facility], was released, came to our hospital today. She was found to be in atrial fib and thus is being admitted for that. The cause of her left foot pain is not clear. There is some swelling and a little redness. The swel ling is mostly around the ankle joint. There is tenderness to move the joint and if so, we wonder if she might have a gout attack. Mrs. Ugarte has been treated for high blood pressure for several years and dyslipidemia. She had a normal Cardiolite stress test, has never had atrial fib before. No his tory of myocardial infarction, stroke, diabetes, vascular interventions, blood clots. Outpatient Medications: Diovan 160, Lasix 40, and atorvastatin. Physical Examination: General: She appears to be her stated age of 83, alert, oriented, pleasant, not in distress. Vital Signs: Heart rate 120 to 140, irregularly irregular. Abdomen: Soft. Extremities: The right foot has 1+ edema. Left foot 2+ edema. There is tenderness around the ankle joint and metatarsophalangeal joint. Imaging: Her EKG shows atrial fib, rapid ventricular response, nonspecific ST abnormality. Laboratory Data: Significant for a low magnesium level and troponin level was elevated. TSH is norm al. Creatinine 0.97. Her calcium level was slightly elevated, it is 10.4. She has elevated MCV and mildly elevated percentage of monocytes. Impression: The patient has new onset atrial fibrillation. It is probably accounting for some of th e swelling that she has. I am not sure it could be accounting for the pain. We need to make sure lane cardenas does not have DVT, asked for an evaluation to see if she has a gout, perhaps a uric acid level woul d be helpful. She recently changed diuretics from thiazide to furosemide that does not seem likely t o have provoked a gout attack, the opposite, so it would be more likely to do so. I recommend Betapa ce, full anticoagulation. I will try to establish sinus rhythm while we work up the cause of the josef vated troponin and the pain in her left ankle and foot. SH/MODL Voice ID: [id number] Report ID: [id number]
[2019-02-06] MEDS ORDERED: ENOXAPARIN 100 MG/ML SYR SQ SCH (01:10)
[2019-02-06] MEDS ORDERED: ONDANSETRON 4 MG/2 ML VIAL IV PRN (01:10)
[2019-02-06] MEDS: SOTALOL HCL 80 MG TAB PO SCH ×3 (01:10→17:46)
[2019-02-06] MEDS ORDERED: FAMOTIDINE 20 MG TAB PO SCH (01:10)
[2019-02-06] MEDS: ATORVASTATIN 40 MG TAB PO SCH ×2 (01:10→20:23)
[2019-02-06] MEDS ORDERED: HYDRALAZINE HCL 20 MG/ML VIAL IV PRN (01:10)
[2019-02-06] MEDS ORDERED: ACETAMINOPHEN 500 MG TAB PO PRN (01:10)
[2019-02-06] MEDS ORDERED: ATORVASTATIN 20 MG TAB ONE (01:47)
[2019-02-06 02:35] LABS: C-Reactive Protein 76.8 mg/L (<3.00); CKMB Creatine Kinase MB 3.3 ng/mL (0.3-3.6); Thyroid Stimulating Hormone 1.8 uIU/mL (0.360-3.740)
[2019-02-06 02:39] LABS: Troponin I 1.01 ng/mL (0.0-0.045)
[2019-02-06] MEDS ORDERED: FUROSEMIDE 40 MG/4 ML VIAL IV ONE (03:51)
[2019-02-06 06:36] LABS: Absolute Lymphocytes (CBC) 1.3 K/uL (0.7-4.9); Absolute Monocytes 1.1 K/uL (0.1-1.3); Absolute Neutrophil 6.7 K/uL (1.8-8.0); Basophils % 0.9 % (0-1.3); Eosinophils % 0.9 % (0-4.4); Hematocrit 37.3 % (36.0-45.0); Lymphocytes % 14.5 % (15.3-44.8); MPV 9.1 fL (7.6-11.3)
[2019-02-06 07:19] LABS: Potassium 3.6 mmol/L (3.5-5.1)
[2019-02-06 07:20] LABS: Magnesium 1.4 mg/dL (1.8-2.4)
[2019-02-06] MEDS ORDERED: Magnesium Sulfate 2gm IVPB 2 G/50 ML BAG IV ONE (07:50)
--- NOTE | 2019-02-06 08:07 | RAD REPORT ---
EXAM DESCRIPTION: RAD - Chest Single View - 02/06/2019 6:31 am CLINICAL HISTORY: Shortness of breath, CHF COMPARISON: February 05, 2019 TECHNIQUE: AP portable chest image was obtained 0620 hours . FINDINGS: Heart size is normal range and no abnormal vascular engorgement seen. Significant failure or volume overload are not suspected. Minimal interstitial stranding is present in the right lung bas e fractionally increased over the comparison. No consolidation or mass. Trachea is midline. No measur able pleural effusion and no pneumothorax. No acute bony abnormality seen. No acute aortic findings s uspected. IMPRESSION: No significant CHF or volume overload findings seen. Minimal interstitial stranding in the right base that could indicate an early interstitial edema or i nfiltrate.
--- NOTE | 2019-02-06 08:51 | EKG ---
Test Date: 2019-02-05 Test Time: 15:47:38 Conveyor System Dispatcher: JOVANNY MEASUREMENT RESULTS: Intervals: Rate: 147 MN: QRSD: 80 QT: 304 QTc: 475 Spurgeon: P: MN: QRS: -50 T: -33 INTERPRETIVE STATEMENTS: Atrial fibrillation with rapid ventricular response Left axis deviation Nonspecific ST and T wave abnormality, probably digitalis effect Abnormal ECG No previous ECG available for comparison Electronically Signed On 02-06-19 08:50:13 CDT by Jack Caraballo
[2019-02-06] MEDS ORDERED: POTASSIUM CL SA 10 MEQ TAB PO ONE (09:00)
[2019-02-06] MEDS: ENOXAPARIN 60 MG/0.6 ML SQ SCH ×2 (10:01→20:24)
[2019-02-06] MEDS: FAMOTIDINE 20 MG TAB PO SCH (10:01)
[2019-02-06] MEDS: FUROSEMIDE 20 MG/ 2ML VIAL IV SCH ×2 (10:02→17:46)
[2019-02-06 10:11] LABS: CKMB Creatine Kinase MB 3.6 ng/mL (0.3-3.6)
[2019-02-06 10:14] LABS: Troponin I 0.84 ng/mL (0.0-0.045)
--- NOTE | 2019-02-06 10:51 | ECHO ---
HEIGHT: 5 ft 4 in WEIGHT: 140 lb 0 oz DATE OF STUDY: 02/06/[address]: Fady Antunez DO 2-DIMENSIONAL: YES M.MODE: YES DOPPLER: YES COLOR FLOW: YES TDS: NO PORTABLE: YES DEFINITY: NO BUBBLE STUDY: NO DIAGNOSIS: EVALUATE FOR CONGESTIVE HEART FAILURE, ATRIAL FIBRILLATION WITH RAPID VENTRICULAR RESPONSE CARDIAC HISTORY: CATHERIZATION: NO SURGERY: NO PROSTHETIC VALVE: NO PACEMAKER: NO MEASUREMENTS (cm) DIASTOLIC (NORMALS) SYSTOLIC (NORMALS) IVSd 1.5 (0.6-1.2) LA Diam 4.2 (1.9-4.0) LVEF 60-65% LVIDd 2.9 (3.5-5.7) LVIDs 2.2 (2.0-3.5) %FS 25% LVPWd 1.5 (0.6-1.2) Ao Diam 3.0 (2.0-3.7) 2 DIMENSIONAL ASSESSMENT: RIGHT ATRIUM: NORMAL LEFT ATRIUM: DILATED RIGHT VENTRICLE: NORMAL LEFT VENTRICLE: LEFT VENTRICULAR HYPERTROPHY TRICUSPID VALVE: NORMAL MITRAL VALVE: NORMAL PULMONIC VALVE: NORMAL AORTIC VALVE: NORMAL PERICARDIAL EFFUSION: NONE AORTIC ROOT: NORMAL LEFT VENTRICULAR WALL MOTION: NORML DOPPLER/COLOR FLOW: MILD MITRAL AND TRICUSPID REGURGITATION. NORMAL RIGHT VENTRICULAR SYSTOLIC PRESSURE. COMMENTS: NORMAL LEFT VENTRICULAR EJECTION FRACTION. LEFT VENTRICULAR HYPERTROPHY. DILATED LEFT ATRIUM. MILD MITRAL AND TRICUSPID REGURGITATION. ATRIAL FIBRILLATION. HEART RATE 110-130 BEATS PER MINUTE. TECHNOLOGIST: Dre OBREGON
--- NOTE | 2019-02-06 13:30 | P.PN ---
Subjective Date of Service: 02/06/19 Primary Care Provider: Dr. Chaidez Chief Complaint: Left foot swelling Subjective: Improving Patient seen and examined at bedside. No family at bedside. Chart reviewed and case discussed with nursing staff. No acute events noted overnight. Review of Systems 10-point ROS is otherwise unremarkable Physical Examination - Vital Signs Temperature: 98.9 F Blood Pressure: 138/84 Pulse: 121 Respirations: 20 Pulse Ox (%): 96 - Physical Exam General: Alert, In no apparent distress, Oriented x3 HEENT: Atraumatic, PERRLA, EOMI Neck: Supple, JVD not distended Respiratory: Clear to auscultation bilaterally, Normal air movement Cardiovascular: Normal S1 S2, Edema (LLE: 1+ non pitting), Irregular heart rate/ rhythm (A. fib) Gastrointestinal: Normal bowel sounds, No tenderness Musculoskeletal: No tenderness Integumentary: No rashes Neurological: Normal speech, Normal tone, Normal affect Lymphatics: No axilla or inguinal lymphadenopathy - Studies Laboratory Data (last 24 hrs) 02/05/19 16:10: Uric Acid 5.8 02/05/19 16:10: PT 11.9, INR 1.01 02/05/19 16:10: WBC 9.2, Hgb 12.9, Hct 37.4, Plt Count 234 02/05/19 16:10: Sodium 138, Potassium 3.3 L, BUN 22 H, Creatinine 0.97, Glucose 132 H, Magnesium 1.3 L*, Total Bilirubin 0.4, AST 31, ALT 30, Alkaline Phosphatase 81 Assessment And Plan - Current Problems (Diagnosis) (1) Atrial fibrillation with RVR Onset Date: 02/05/19 Current Visit: Yes Status: Acute (2) Hypertension Current Visit: No Status: Chronic Qualifiers: Hypertension type: essential hypertension Qualified Code(s): I10 - Essential (primary) hypertension (3) CHF (congestive heart failure) Current Visit: Yes Status: Chronic Qualifiers: Heart failure type: diastolic Heart failure chronicity: acute on chronic Qualified Code(s): I50.33 - Acute on chronic diastolic (congestive) heart failure (4) Swelling of lower leg Current Visit: Yes Status: Acute (5) Hyperlipidemia Current Visit: Yes Status: Acute Qualifiers: Hyperlipidemia type: unspecified Qualified Code(s): E78.5 - Hyperlipidemia , unspecified (6) GERD (gastroesophageal reflux disease) Current Visit: Yes Status: Acute Qualifiers: Esophagitis presence: esophagitis presence not specified Qualified Code(s) : K21.9 - Gastro-esophageal reflux disease without esophagitis (7) NSTEMI (non-ST elevated myocardial infarction) Current Visit: Yes Status: Acute - Plan New onset atrial fibrillation with RVR NSTEMI Continues to be in A-fib; Increased sotalol to 120 mg BID Cardiology consulted. Recommendations appreciated. FU Troponin x 3, pending [Patient will be admitted to ICU for further evaluation and treatment. Patient given Lopressor in the emergency room. Case discussed with cardiology. Patient will be started on sotalol 80 mg twice daily. Will start full-dose anti coagulation therapy and sotalol 80 mg . Will monitor cardiac enzymes and telemetry. Will also provide Lasix. Cardiology to further assess and evaluate patient. ] Hypertension Will hold Diovan at this time. Continue with hydralazine IV. Continue sotalol. Suspect acute on chronic diastolic CHF: Patient recently started on Lasix. Will continue with Lasix IV. Echocardiogram pending. Left lower extremity edema suspect gout versus other: Improved edema. Uric acid negative, elevated sed rate. Venous studies negative for DVT. Will get PT to ambulate/assist. Hyperlipidemia: Continue with statin medication GERD: Continue with medication DVT prophylaxis: see above GI prophylaxis: None Diet: Heart Healthy, NPO after midnight for possible cardiac intervention for A.Fib Disposition: Pending symptomatic improvement.
--- NOTE | 2019-02-06 14:16 | PN ---
Mrs. Ugarte still in AFib. We are sure it is a very brief duration because of recent EKG in my office and recent ER visit and she is in sinus rhythm. Her ultrasound of leg vein shows no DVT. Uric acid level is normal, so I think we are dealing with bone spurs and degenerative changes in the foot or i t could be something else. Her C-reactive protein is high. Her troponins are elevated; I think most likely it is from the AFib and rapid response. We will increase the dose of Betapace today, and if she is not in normal rhythm by tomorrow, we can do a cardioversion. We will keep her n.p.o. after mi dnight. ANEESH/ANGÉLICA Voice ID: [id number] Report ID: [id number]
[2019-02-06] MEDS ORDERED: MAGNESIUM SULFATE 1 gm IVPB 1 GM/100 ML BAG IV ONE (16:58)
[2019-02-07] MEDS: SOTALOL HCL 80 MG TAB PO SCH ×2 (05:14→17:30)
[2019-02-07 05:40] LABS: Absolute Lymphocytes (CBC) 1.9 K/uL (0.7-4.9); Absolute Monocytes 0.9 K/uL (0.1-1.3); Absolute Neutrophil 6.2 K/uL (1.8-8.0); Basophils % 0.6 % (0-1.3); Eosinophils % 1.2 % (0-4.4); Hematocrit 37.3 % (36.0-45.0); Lymphocytes % 20.8 % (15.3-44.8); MPV 8.9 fL (7.6-11.3); Monocytes % 10.2 % (3.3-12.3); RBC Red Blood Cell Count 3.72 M/uL (3.86-4.86)
[2019-02-07 05:54] LABS: Magnesium 1.7 mg/dL (1.8-2.4); Potassium 3.7 mmol/L (3.5-5.1)
[2019-02-07] MEDS ORDERED: NA CHLORIDE 0.9% 250 ML ONE (07:00)
[2019-02-07] MEDS ORDERED: MAGNESIUM SULFATE 1 gm IVPB 1 GM/100 ML BAG IV ONE (07:00)
[2019-02-07] MEDS ORDERED: KCL 20 MEQ/100 mL IVPB 20 MEQ/100 ML BAG IV SCH (08:00)
[2019-02-07] MEDS: FUROSEMIDE 20 MG/ 2ML VIAL IV SCH ×2 (09:01→17:30)
[2019-02-07] MEDS: ENOXAPARIN 60 MG/0.6 ML SQ SCH ×2 (09:01→21:58)
[2019-02-07] MEDS: FAMOTIDINE 20 MG TAB PO SCH (09:01)
--- NOTE | 2019-02-07 13:25 | P.PN ---
Subjective Date of Service: 02/07/19 Primary Care Provider: Dr. Chaidez Chief Complaint: Left foot swelling Subjective: Improving Patient seen and examined at bedside. Son at bedside. Chart reviewed and case discussed with nursing staff. Discussed plan of care with son and patient. No acute events noted overnight. Continue to be in A-fib though rate improved this am. Denies any palpitations, sob, chest pain, dizziness, headache Review of Systems 10-point ROS is otherwise unremarkable Physical Examination - Vital Signs Temperature: 97.1 F Blood Pressure: 134/74 Pulse: 116 Respirations: 20 Pulse Ox (%): 98 - Physical Exam General: Alert, In no apparent distress, Oriented x3 HEENT: Atraumatic, PERRLA, EOMI Neck: Supple, JVD not distended Respiratory: Clear to auscultation bilaterally, Normal air movement Cardiovascular: Normal S1 S2, Irregular heart rate/rhythm (A.Fib) Gastrointestinal: Normal bowel sounds, No tenderness Musculoskeletal: No tenderness Integumentary: No rashes Neurological: Normal speech, Normal tone, Normal affect Lymphatics: No axilla or inguinal lymphadenopathy Assessment And Plan - Current Problems (Diagnosis) (1) Atrial fibrillation with RVR Onset Date: 02/05/19 Current Visit: Yes Status: Acute (2) Hypertension Current Visit: No Status: Chronic Qualifiers: Hypertension type: essential hypertension Qualified Code(s): I10 - Essential (primary) hypertension (3) CHF (congestive heart failure) Current Visit: Yes Status: Chronic Qualifiers: Heart failure type: diastolic Heart failure chronicity: acute on chronic Qualified Code(s): I50.33 - Acute on chronic diastolic (congestive) heart failure (4) Swelling of lower leg Current Visit: Yes Status: Acute (5) Hyperlipidemia Current Visit: Yes Status: Acute Qualifiers: Hyperlipidemia type: unspecified Qualified Code(s): E78.5 - Hyperlipidemia , unspecified (6) GERD (gastroesophageal reflux disease) Current Visit: Yes Status: Acute Qualifiers: Esophagitis presence: esophagitis presence not specified Qualified Code(s) : K21.9 - Gastro-esophageal reflux disease without esophagitis (7) NSTEMI (non-ST elevated myocardial infarction) Current Visit: Yes Status: Acute (8) Asymptomatic bacteriuria Current Visit: Yes Status: Acute - Plan New onset atrial fibrillation with RVR NSTEMI Continues to be in A-fib; Increased sotalol to 120 mg BID. Possible cardioversion tomorrow. Cardiology consulted. Recommendations appreciated. FU Troponin x 3, pending Continue full dose anticoagulation [Patient will be admitted to ICU for further evaluation and treatment. Patient given Lopressor in the emergency room. Case discussed with cardiology. Patient will be started on sotalol 80 mg twice daily. Will start full-dose anti coagulation therapy and sotalol 80 mg . Will monitor cardiac enzymes and telemetry. Will also provide Lasix. Cardiology to further assess and evaluate patient. ] Hypertension Will hold Diovan at this time. Continue with hydralazine IV. Continue sotalol. Suspect acute on chronic diastolic CHF: Patient recently started on Lasix. Will continue with Lasix IV. Echocardiogram pending. Left lower extremity edema suspect gout versus other: Improved edema. Uric acid negative, elevated sed rate. Venous studies negative for DVT. Will get PT to ambulate/assist. Hyperlipidemia: Continue with statin medication GERD: Continue with medication Asymptomatic bacteuria Patient denies any urinary complaints today or recently prior to this admission. No Altered mentation Will hold off on any antibiotic treatment at this time. Generalized weakness PT consulted DVT prophylaxis: see above GI prophylaxis: None Diet: Heart Healthy, NPO after midnight for possible cardiac intervention for A.Fib Disposition: Pending symptomatic improvement.
[2019-02-07] MEDS: ATORVASTATIN 40 MG TAB PO SCH (21:58)
[2019-02-08] MEDS ORDERED: METOPROLOL TARTRATE 5 MG/5 ML INJ IV STA ×3 (01:03→02:27)
[2019-02-08] MEDS: SOTALOL HCL 80 MG TAB PO SCH ×2 (04:11→17:28)
[2019-02-08 04:24] LABS: Absolute Lymphocytes (CBC) 1.7 K/uL (0.7-4.9); Absolute Monocytes 1.1 K/uL (0.1-1.3); Absolute Neutrophil 7.4 K/uL (1.8-8.0); Basophils % 0.8 % (0-1.3); Eosinophils % 0.9 % (0-4.4); Hematocrit 35.3 % (36.0-45.0); Lymphocytes % 16.2 % (15.3-44.8); MPV 9.6 fL (7.6-11.3); Monocytes % 10.9 % (3.3-12.3); RBC Red Blood Cell Count 3.49 M/uL (3.86-4.86)
[2019-02-08 04:34] LABS: Magnesium 1.5 mg/dL (1.8-2.4); Potassium 3.8 mmol/L (3.5-5.1)
[2019-02-08] MEDS ORDERED: NA CHLORIDE 0.9% 250 ML IV ONE (04:41)
[2019-02-08] MEDS ORDERED: Magnesium Sulfate 2gm IVPB 2 G/50 ML BAG IV ONE ×2 (05:04)
[2019-02-08] MEDS ORDERED: KCL 20 MEQ/100 mL IVPB 20 MEQ/100 ML BAG IV SCH (06:00)
[2019-02-08] MEDS: FUROSEMIDE 20 MG/ 2ML VIAL IV SCH ×2 (08:14→17:30)
[2019-02-08] MEDS: ENOXAPARIN 60 MG/0.6 ML SQ SCH ×2 (08:14→21:24)
[2019-02-08] MEDS: FAMOTIDINE 20 MG TAB PO SCH (08:15)
[2019-02-08] MEDS ORDERED: MIDAZOLAM HCL 2 MG/2 ML INJ ONE (08:46)
[2019-02-08] MEDS ORDERED: ATROPINE SULF 1 MG/10 ML SYR IV ONE (08:46)
[2019-02-08] MEDS ORDERED: NA CHLORIDE 0.9% 500 ML ONE (08:47)
--- NOTE | 2019-02-08 09:31 | P.PN ---
Date of Service: 02/08/19 Notified by nursing staff that heart rate is 150s. Given Lopressor IV push x3 doses. Patient blood pressure remained stable however heart rate has not gone down. Will reassess and may need to give sotalol early tonight to get the heart rate stabilized.
--- NOTE | 2019-02-08 11:36 | EKG ---
Test Date: 2019-02-08 Test Time: 09:16:05 Fourth Hand: JOSEF MEASUREMENT RESULTS: Intervals: Rate: 65 W[place]: 148 QRSD: 86 QT: 376 QTc: 391 [place]: P: 53 [place]: 148 QRS: -40 T: 27 INTERPRETIVE STATEMENTS: Normal sinus rhythm Possible Left atrial enlargement Left axis deviation Abnormal ECG Compared to ECG 02/05/2019 15:47:38 Atrial fibrillation no longer present ST (T wave) deviation no longer present Electronically Signed On 02-08-19 11:36:05 CDT by Jack Caraballo
[2019-02-08] MEDS ORDERED: MAGNESIUM SULFATE 1 gm IVPB 1 GM/100 ML BAG IV ONE (14:00)
--- NOTE | 2019-02-08 16:05 | P.PN ---
Subjective Date of Service: 02/08/19 Primary Care Provider: Dr. Chaidez Chief Complaint: Left foot swelling Patient seen and examined at bedside. Son at bedside. Chart reviewed and case discussed with nursing staff. Discussed plan of care with son and patient. No acute events noted overnight. S/p cardioversion today. Now in NSR Denies any palpitations, sob, chest pain, dizziness, headache Review of Systems 10-point ROS is otherwise unremarkable Physical Examination - Vital Signs Temperature: 98.6 F Blood Pressure: 173/61 Pulse: 59 Respirations: 18 Pulse Ox (%): 95 - Physical Exam General: Alert, In no apparent distress HEENT: Atraumatic, PERRLA, EOMI Neck: Supple, JVD not distended Respiratory: Clear to auscultation bilaterally, Normal air movement Cardiovascular: Regular rate/rhythm, Normal S1 S2 Gastrointestinal: Normal bowel sounds, No tenderness Musculoskeletal: No tenderness Integumentary: No rashes Neurological: Normal speech, Normal tone, Normal affect Lymphatics: No axilla or inguinal lymphadenopathy Assessment And Plan - Current Problems (Diagnosis) (1) Atrial fibrillation with RVR Onset Date: 02/05/19 Current Visit: Yes Status: Acute (2) Hypertension Current Visit: No Status: Chronic Qualifiers: Hypertension type: essential hypertension Qualified Code(s): I10 - Essential (primary) hypertension (3) CHF (congestive heart failure) Current Visit: Yes Status: Chronic Qualifiers: Heart failure type: diastolic Heart failure chronicity: acute on chronic Qualified Code(s): I50.33 - Acute on chronic diastolic (congestive) heart failure (4) Swelling of lower leg Current Visit: Yes Status: Acute (5) Hyperlipidemia Current Visit: Yes Status: Acute Qualifiers: Hyperlipidemia type: unspecified Qualified Code(s): E78.5 - Hyperlipidemia , unspecified (6) GERD (gastroesophageal reflux disease) Current Visit: Yes Status: Acute Qualifiers: Esophagitis presence: esophagitis presence not specified Qualified Code(s) : K21.9 - Gastro-esophageal reflux disease without esophagitis (7) NSTEMI (non-ST elevated myocardial infarction) Current Visit: Yes Status: Acute (8) Asymptomatic bacteriuria Current Visit: Yes Status: Acute - Plan New onset atrial fibrillation with RVR NSTEMI S/P Cardioversion, now in normal sinus rhythm. Cardiology consulted. Recommendations appreciated. Continue full dose anticoagulation [Patient will be admitted to ICU for further evaluation and treatment. Patient given Lopressor in the emergency room. Case discussed with cardiology. Patient will be started on sotalol 80 mg twice daily. Will start full-dose anti coagulation therapy and sotalol 80 mg . Will monitor cardiac enzymes and telemetry. Will also provide Lasix. Cardiology to further assess and evaluate patient. ] Hypertension Will hold Diovan at this time. Continue with hydralazine IV. Continue sotalol. Suspect acute on chronic diastolic CHF: Patient recently started on Lasix. Will continue with Lasix IV. Left lower extremity edema suspect gout versus other: Improved edema. Uric acid negative, elevated sed rate. Venous studies negative for DVT. Will get PT to ambulate/assist. Hyperlipidemia: Continue with statin medication GERD: Continue with medication Asymptomatic bacteuria Patient denies any urinary complaints today or recently prior to this admission. No Altered mentation Will hold off on any antibiotic treatment at this time. Generalized weakness PT consulted SNF placement, SW consulted. DVT prophylaxis: see above GI prophylaxis: None Diet: Heart Healthy, Disposition: Pending SNF placement.
[2019-02-08] MEDS ORDERED: NITROGLYCERIN 0.4 MG/TAB SL PRN (17:31)
--- NOTE | 2019-02-08 18:16 | OP ---
Surgeon: Jack Caraballo MD Procedure: Direct current cardioversion. Indication: Persistent atrial fibrillation refractory to medicines. Procedure In Detail: The patient was brought to the [facility] in a fasting state. She had be en loaded with Betapace, 72 hours of drug therapy was done. Total anticoagulation for 72 hours. We believed the onset of atrial fibrillation was probably the day she came in, so we believe her stroke risk is low. She was sedated with 4 mg of Versed. Anterior-posterior paddles were placed on the pat ient's chest. A single shock synchronized to the QRS was given, 200 joules. This resulted in sinus bradycardia and sinus rhythm. Complications: None. ANEESH/ANGÉLICA Voice ID: [id number] Report ID: [id number]
[2019-02-08] MEDS: NA CHLORIDE 0.9% 1,000 ML IV SCH (18:23)
[2019-02-08] MEDS: ATORVASTATIN 40 MG TAB PO SCH (21:24)
[2019-02-09 04:25] LABS: Potassium 3.9 mmol/L (3.5-5.1)
[2019-02-09] MEDS: SOTALOL HCL 80 MG TAB PO SCH (07:26)
[2019-02-09 07:59] VITALS: BMI 23.0
[2019-02-09 08:07] LABS: Magnesium 1.7 mg/dL (1.8-2.4)
[2019-02-09] MEDS ORDERED: MAGNESIUM SULFATE 1 gm IVPB 1 GM/100 ML BAG IV ONE (08:16)
[2019-02-09] MEDS ORDERED: POTASSIUM CL SA 10 MEQ TAB PO ONE (08:40)
[2019-02-09] MEDS: ENOXAPARIN 60 MG/0.6 ML SQ SCH (09:01)
[2019-02-09] MEDS: FUROSEMIDE 20 MG/ 2ML VIAL IV SCH (09:02)
[2019-02-09] MEDS: FAMOTIDINE 20 MG TAB PO SCH (09:02)
[2019-02-09] MEDS: NA CHLORIDE 0.9% 1,000 ML IV SCH (09:04)
[2019-02-09 12:10] VITALS: O2SAT 97
[2019-02-09 12:36] VITALS: BP 140/66; TEMP 99.7
--- NOTE | 2019-02-09 13:50 | P.PN ---
Subjective Date of Service: 02/09/19 Primary Care Provider: Dr. Chaidez Chief Complaint: Left foot swelling Subjective: No C/O voiced, Improving Patient seen and examined at bedside. Son at bedside. Chart reviewed and case discussed with nursing staff. Discussed plan of care with son and patient. No acute events noted overnight. S/p cardioversion yesterday. Continues to remain in normal sinus rhythm. Denies any palpitations, sob, chest pain, dizziness, headache Review of Systems 10-point ROS is otherwise unremarkable Physical Examination - Vital Signs Temperature: 99.7 F Blood Pressure: 140/66 Pulse: 55 Respirations: 16 Pulse Ox (%): 97 - Physical Exam General: Alert, In no apparent distress, Oriented x3 HEENT: Atraumatic, PERRLA, EOMI Neck: Supple, JVD not distended Respiratory: Clear to auscultation bilaterally, Normal air movement Cardiovascular: Regular rate/rhythm, Normal S1 S2 Gastrointestinal: Normal bowel sounds, No tenderness Musculoskeletal: No tenderness Integumentary: No rashes Neurological: Normal speech, Normal tone, Normal affect Lymphatics: No axilla or inguinal lymphadenopathy Assessment And Plan - Current Problems (Diagnosis) (1) Atrial fibrillation with RVR Onset Date: 02/05/19 Current Visit: Yes Status: Acute (2) Hypertension Current Visit: No Status: Chronic Qualifiers: Hypertension type: essential hypertension Qualified Code(s): I10 - Essential (primary) hypertension (3) CHF (congestive heart failure) Current Visit: Yes Status: Chronic Qualifiers: Heart failure type: diastolic Heart failure chronicity: acute on chronic Qualified Code(s): I50.33 - Acute on chronic diastolic (congestive) heart failure (4) Swelling of lower leg Current Visit: Yes Status: Acute (5) Hyperlipidemia Current Visit: Yes Status: Acute Qualifiers: Hyperlipidemia type: unspecified Qualified Code(s): E78.5 - Hyperlipidemia , unspecified (6) GERD (gastroesophageal reflux disease) Current Visit: Yes Status: Acute Qualifiers: Esophagitis presence: esophagitis presence not specified Qualified Code(s) : K21.9 - Gastro-esophageal reflux disease without esophagitis (7) NSTEMI (non-ST elevated myocardial infarction) Current Visit: Yes Status: Acute (8) Asymptomatic bacteriuria Current Visit: Yes Status: Acute - Plan New onset atrial fibrillation with RVR NSTEMI S/P Cardioversion, now in normal sinus rhythm. Cardiology consulted. Recommendations appreciated. Continue full dose anticoagulation Hypertension Will hold Diovan at this time. Continue with hydralazine IV. Continue sotalol. Suspect acute on chronic diastolic CHF: Patient recently started on Lasix. Will continue with Lasix IV. Left lower extremity edema suspect gout versus other: Improved edema. Uric acid negative, elevated sed rate. Venous studies negative for DVT. Will get PT to ambulate/assist. Hyperlipidemia: Continue with statin medication GERD: Continue with medication Asymptomatic bacteuria Patient denies any urinary complaints today or recently prior to this admission. No Altered mentation Will hold off on any antibiotic treatment at this time. Generalized weakness PT consulted SNF placement, SW consulted. DVT prophylaxis: see above GI prophylaxis: None Diet: Heart Healthy, Disposition: Pending SNF placement.
--- NOTE | 2019-02-09 15:13 | P.DS ---
Admission Date: 02/05/19 Discharge Date: 02/09/19 Primary Care Provider: Dr. Chaidez Disposition: TRANSFER TO [facility] Discharge Condition: GOOD Reason for Admission: Left foot swelling - Problems (1) Atrial fibrillation with RVR Onset Date: 02/05/19 Current Visit: Yes Status: Acute (2) Hypertension Current Visit: No Status: Chronic Qualifiers: Hypertension type: essential hypertension Qualified Code(s): I10 - Essential (primary) hypertension (3) CHF (congestive heart failure) Current Visit: Yes Status: Chronic Qualifiers: Heart failure type: diastolic Heart failure chronicity: acute on chronic Qualified Code(s): I50.33 - Acute on chronic diastolic (congestive) heart failure (4) Swelling of lower leg Current Visit: Yes Status: Acute (5) Hyperlipidemia Current Visit: Yes Status: Acute Qualifiers: Hyperlipidemia type: unspecified Qualified Code(s): E78.5 - Hyperlipidemia , unspecified (6) GERD (gastroesophageal reflux disease) Current Visit: Yes Status: Acute Qualifiers: Esophagitis presence: esophagitis presence not specified Qualified Code(s) : K21.9 - Gastro-esophageal reflux disease without esophagitis (7) NSTEMI (non-ST elevated myocardial infarction) Current Visit: Yes Status: Acute (8) Asymptomatic bacteriuria Current Visit: Yes Status: Acute Brief History of Present Illness: 83-year-old female presented to the emergency room with left foot swelling. Patient had left foot swelling today. Patient with history of hypertension. Upon further evaluation in the emergency room she was found to be in atrial fibrillation with RVR. Rate above 140. Patient given several doses of Lopressor. Slight improvement noted. Swelling reported by patient had been present for over a day. Some slight pain noted. She does report some shortness of breath. Palpitations noted. 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 Lasix was added. Patient reports no prior history of atrial fibrillation. In the ER patient evaluated. CBC, CMP reviewed. Troponin was elevated. Patient was admitted for treatment. Case discussed with cardiology. Patient will be started on full-dose anti coagulation therapy and sotalol. When I saw the patient ER, she appeared stable. Hospital Course: New onset atrial fibrillation with RVR NSTEMI Cardiology was consulted. She was started on sotalol. She continued to be in a- fib. Her sotalol dosgae was increased to 120 mg bid. She still continued to be in A-fib. She was then taken for Cardioversion. After that, she remained stable and in normal sinus rhythm. She was discharged to the alf for further rehab/physical therapy in a stable manner. She was discharged on sotalol and anticoagulation. Hypertension Her diovan was held. Her coreg was discontinued on discharge as well, due to starting sotalol. No other changes to medications. Suspect acute on chronic diastolic CHF: She was given IV lasix throughout the stay. An ECHO was done, which showed LVH and dilated heart with normal EF. She was discharged on lasix to the alf. Left lower extremity edema suspect gout versus other: Improved edema after diuresis. Uric acid negative, elevated sed rate. Venous studies negative for DVT. PT consulted, recommended further PT at [facility]. She remained otherwise stable throughout the stay. Vital Signs/Physical Exam: Temp Pulse Resp BP Pulse Ox 99.7 F 55 16 140/66 97 02/09/19 13:50 02/09/19 13:50 02/09/19 13:50 02/09/19 13:50 02/09/19 13:50 General: Alert, In no apparent distress, Oriented x3 HEENT: Atraumatic, PERRLA, EOMI Neck: Supple, JVD not distended Respiratory: Clear to auscultation bilaterally, Normal air movement Cardiovascular: Regular rate/rhythm, Normal S1 S2 Gastrointestinal: Normal bowel sounds, No tenderness Musculoskeletal: No tenderness Integumentary: No rashes Neurological: Normal speech, Normal tone, Normal affect Lymphatics: No axilla or inguinal lymphadenopathy Laboratory Data at Discharge: WBC 10.4 K/uL (4.3-10.9) 02/08/19 03:47 Hgb 12.2 g/dL (12.0-15.0) 02/08/19 03:47 Hct 35.3 % (36.0-45.0) L 02/08/19 03:47 Plt Count 268 K/uL (152-406) 02/08/19 03:47 PT 11.9 SECONDS (9.5-12.5) 02/05/19 16:10 INR 1.01 02/05/19 16:10 Sodium 139 mmol/L (136-145) 02/09/19 03:25 Potassium 3.9 mmol/L (3.5-5.1) 02/09/19 03:25 BUN 30 mg/dL (7-18) H 02/09/19 03:25 Creatinine 0.69 mg/dL (0.55-1.3) 02/09/19 03:25 Glucose 106 mg/dL (74-106) 02/09/19 03:25 Uric Acid 5.8 mg/dL (2.6-6.0) 02/05/19 16:10 Magnesium 1.7 mg/dL (1.8-2.4) L 02/09/19 03:25 Total Bilirubin 0.4 mg/dL (0.2-1.0) 02/05/19 16:10 AST 31 U/L (15-37) 02/05/19 16:10 ALT 30 U/L (12-78) 02/05/19 16:10 Alkaline Phosphatase 81 U/L (45-117) 02/05/19 16:10 Troponin I 0.84 ng/mL (0.0-0.045) H* 02/06/19 09:12 Triglycerides 52 mg/dL (<150) 02/06/19 06:15 Cholesterol 144 mg/dL (<200) 02/06/19 06:15 HDL Cholesterol 57 mg/dL (40-60) 02/06/19 06:15 Cholesterol/HDL Ratio 2.53 02/06/19 06:15 Home Medications: Albuterol Sulfate [Albuterol Sulfate Hfa] 2 puff IN Q6H PRN 02/06/19 Amlodipine Besylate [Norvasc] 5 mg PO BID 02/06/19 Clonidine HCl [Catapres] 1 tab PO DAILY AFTER SUPPER 02/06/19 Escitalopram Oxalate [Lexapro] 10 mg PO BEDTIME 02/06/19 Famotidine 40 mg PO BEDTIME 02/06/19 Hydralazine [Apresoline*] 25 mg PO DAILY 02/06/19 Losartan/Hydrochlorothiazide [Losartan-Hctz 100-25 mg Tab] 1 tab PO DAILY Pravastatin Sodium 40 mg PO BEDTIME 02/06/19 Spironolactone 25 mg PO DAILY 02/06/19 Enoxaparin Sodium [Lovenox 60 MG INJ*] 60 mg SQ Q12HR syr 02/09/19 Furosemide [Lasix 20 MG inj*] 20 mg IV BIDL vial 02/09/19 Sotalol HCl [Betapace*] 120 mg PO BID 6AM 6PM #60 tab 02/09/19 New Medications: Sotalol HCl [Betapace*] 120 mg PO BID 6AM 6PM #60 tab Patient Discharge Instructions: Please follow up with your primary care physician in 2-3 days. Please follow up with cardiology in 2 weeks. Please return to the Emergency room for worsening symptoms. Diet: AHA Activity: Fall precautions Followup: Jack Caraballo MD [ACTIVE - CAN ADMIT] - Israel Child MD [Primary Care Provider] - Time spent managing pt's care (in minutes): 55
== END 2019-02-09 15:49 | DRG 280 ==
LOC: ER 15:22 → ERHOLD 17:12 → 4TH 02-06 02:51
PROVIDERS: ADMIT Family Medicine; ATTEND Family Medicine
PROC: 5A2204Z Restoration of Cardiac Rhythm, Single (ICD-10-PCS; principal; 2019-02-08)
DX: I48.91 Unspecified atrial fibrillation (principal); I50.33 Acute on chronic diastolic (congestive) heart failure; I21.4 Non-ST elevation (NSTEMI) myocardial infarction; Z87.891 Personal history of nicotine dependence; K21.9 Gastro-esophageal reflux disease without esophagitis; E78.5 Hyperlipidemia, unspecified; I11.0 Hypertensive heart disease with heart failure; R82.71 Bacteriuria; M79.89 Other specified soft tissue disorders; R53.1 Weakness
CPT/HCPCS: 36415; 71045; 80048; 80061; 80076; 81003; 82550; 82553; 83735; 83880; 84439; 84443; 84484; 84550; 85025; 85610; 85652; 86140; 87040; 87077; 87086; 87088; 87186; 92960; 93005; 93306; 93970; 97116; 97162; 99285; J0360; J0696; J1160; J1650; J1940; J2250; J3475; J7030